=== PATIENT | male | born 1950 | race Caucasian/White ===

== ENCOUNTER 2024-05-21 11:35 | Inpatient (IN) | payer BC ==
[~2024-05-21] VITALS: Ht 175.3 cm; Wt 91.6 kg
[2024-05-21] MEDS: IV NS 0.9% 1,000 ML BAG IV ONE (12:08)
[2024-05-21 12:33] LABS: BASOPHILS % (AUTO) 0.4 % (0.0-2.0); EOSINOPHILS # (AUTO) 0.1 K/uL (0.0-0.7); EOSINOPHILS % (AUTO) 1.1 % (0.0-6.0); HEMATOCRIT 43 % (39-51); HEMOGLOBIN 13.9 g/dL (13.5-17.5); MEAN CORPUSCULAR HEMOGLOBIN 28 PG (26.0-33.0); MEAN CORPUSCULAR HGB CONC 33 g/dl (31.0-36.0); MEAN CORPUSCULAR VOLUME 87 fL (80-96); MONOCYTES # (AUTO) 1.8 K/uL (0.1-1.30); MONOCYTES % (AUTO) 17.7 % (2.0-12.0); NEUTROPHILS % (AUTO) 70.8 % (43.0-81.0); PLATELET COUNT (AUTO) 257 K/uL (150-450); RED BLOOD CELL COUNT(AUTO) 4.92 MIL/uL (4.5-6.0); RED CELL DISTRIBUTION WIDTH 13.8 % (11.5-15.0)
[2024-05-21 12:59] LABS: ALCOHOL, BLOOD < 3 mg/dL (0-10); CARBON DIOXIDE 24 mmol/L (21-32); CHLORIDE 102 mmol/L (98-107); CREATININE 5.2 mg/dL (0.6-1.3); GLUCOSE 79 mg/dL (74-106); POTASSIUM 5.1 mmol/L (3.5-5.1); SALICYLATE 12.3 mg/dL (2.8-20.0); SODIUM SERUM 142 mmol/L (136-145)
[2024-05-21 13:14] LABS: ACETAMINOPHEN <10 ug/ml (10-30); UREA NITROGEN, BLOOD 94 mg/dL (7-18)
[2024-05-21] MEDS ORDERED: MAGNESIUM HYDROXIDE 30 ML UDC PO PRN (14:30)
[2024-05-21] MEDS ORDERED: Z GUARD REMEDY 4 OZ OINT TP PRN (14:30)
[2024-05-21] MEDS ORDERED: MAG HYDROX/AL HYDROX/SIMETH 30 ML UDC PO PRN (14:30)
[2024-05-21] MEDS ORDERED: ONDANSETRON HCL/PF 4 MG/2 ML VIAL IVP PRN (14:30)
[2024-05-21] MEDS: IV NS 0.9% 1,000 ML IV PRN (17:30)
[2024-05-21 20:00] VITALS: BP 107/64; TEMP 97.5; O2SAT 95
[2024-05-22] VITALS: BP 109/64; TEMP 97.5; O2SAT 94
[2024-05-22 04:00] VITALS: BP 115/65; TEMP 97.7; O2SAT 93
[2024-05-22] MEDS: PANTOPRAZOLE 40 MG TABLET.DR PO SCH (07:30)
[2024-05-22 08:00] VITALS: BP 106/66; TEMP 98.2; O2SAT 94
[2024-05-22] MEDS ORDERED: BUPR-54 PO (09:09)
[2024-05-22] MEDS ORDERED: VENL150T PO (09:09)
[2024-05-22] MEDS ORDERED: EVOL140S2 SQ (09:09)
[2024-05-22] MEDS ORDERED: PROP80TA4 PO (09:09)
[2024-05-22] MEDS ORDERED: GUSE100A SQ (09:09)
[2024-05-22] MEDS ORDERED: ZOLP5TAB2 PO (09:09)
[2024-05-22] MEDS ORDERED: LISI10TA29 PO (09:09)
[2024-05-22 12:00] VITALS: BP 109/58; TEMP 98.2; O2SAT 95
[2024-05-22 14:39] LABS: THYROID STIMULATING HORMONE 0.6 uIU/mL (0.358-3.74)
[2024-05-22 15:59] VITALS: BP 121/73; TEMP 98.6; O2SAT 94
[2024-05-22 20:00] VITALS: BP 98/59; TEMP 97.5; O2SAT 95
[2024-05-23] VITALS: BP 126/71; TEMP 98.3; O2SAT 96
[2024-05-23] MEDS: AMIODARONE 150 MG/3 ML VIAL IV ONE ×2 (05:09→05:10)
[2024-05-23] MEDS: AMIODARONE 150 MG in IV D5W 100 ML IV ONE (05:17)
[2024-05-23] MEDS: AMIODARONE 450 MG in IV D5W 241 ML IV PRN (05:40)
[2024-05-23 07:25] LABS: APPEARANCE,URINE TURBID (CLEAR); BILIRUBIN,URINE 2+ (NEGATIVE); BLOOD, URINE 3+ Ery/uL (NEGATIVE); COLOR,URINE ORANGE (YELLOW); KETONES,URINE TRACE mg/dL (NEGATIVE); LEUKOCYTE ESTERASE ,URINE NEGATIVE (NEGATIVE); NITRITE, URINE NEGATIVE (NEGATIVE); PH,URINE 5.5 (5.0-8.0); PROTEIN,URINE 1+ mg/dl (NEGATIVE); UGLUCOSE NEGATIVE (NEGATIVE); UROBILINOGEN,URINE 0.2 EU/dL (0.2)
[2024-05-23 07:38] LABS: AMPHETAMINE, URINE NEGATIVE (NEGATIVE); BARBITURATE, URINE NEGATIVE (NEGATIVE); BENZODIAZEPINE, URINE NEGATIVE (NEGATIVE); CANNABINOID, URINE NEGATIVE (NEGATIVE); COCCAINE, URINE NEGATIVE (NEGATIVE); PHENCYCLIDINE SCREEN,URINE NEGATIVE (NEGATIVE)
[2024-05-23 07:45] LABS: OPIATE, URINE POSITIVE (NEGATIVE)
[2024-05-23 07:51] LABS: CREATININE, URINE 104.2 MG/DL (30.0-125.0); URINE TOTAL PROTEIN 83.5 mg/dL (0-11.9)
[2024-05-23 08:37] LABS: BASOPHILS % (AUTO) 0.3 % (0.0-2.0); EOSINOPHILS # (AUTO) 0.2 K/uL (0.0-0.7); HEMATOCRIT 40 % (39-51); HEMOGLOBIN 13.2 g/dL (13.5-17.5); LYMPHOCYTES # (AUTO) 0.8 K/uL (0.8-4.8); MEAN CORPUSCULAR HEMOGLOBIN 28 PG (26.0-33.0); MEAN CORPUSCULAR HGB CONC 33 g/dl (31.0-36.0); MEAN CORPUSCULAR VOLUME 83 fL (80-96); MONOCYTES # (AUTO) 1.3 K/uL (0.1-1.30); MONOCYTES % (AUTO) 17.4 % (2.0-12.0); NEUTROPHILS # (AUTO) 5.3 K/uL (1.8-8.9); NEUTROPHILS % (AUTO) 70.3 % (43.0-81.0); PLATELET COUNT (AUTO) 239 K/uL (150-450); RED BLOOD CELL COUNT(AUTO) 4.77 MIL/uL (4.5-6.0); RED CELL DISTRIBUTION WIDTH 13.1 % (11.5-15.0); WHITE BLOOD COUNT (AUTO) 7.5 K/uL (4.3-11.0)
[2024-05-23 09:00] LABS: ADD URINE CULTURE YES; BACTERIA,URINE Few /HPF (None Seen); EOSINOPHIL,URINE None Seen; RBC,URINE 21-50 /HPF (0-2); SQUAMOUS EPITHELIAL CELL,UR Moderate /HPF (None Seen)
[2024-05-23 09:01] LABS: CALCIUM, SERUM 8.6 mg/dL (8.5-10.1); CARBON DIOXIDE 21 mmol/L (21-32); CHLORIDE 103 mmol/L (98-107); CREATININE 3.5 mg/dL (0.6-1.3); GLUCOSE 83 mg/dL (74-106); SODIUM SERUM 137 mmol/L (136-145)
[2024-05-23 09:15] LABS: ALANINE AMINOTRANSFERASE 24 U/L (12-78); ALKALINE PHOSPHATASE 73 U/L (46-116); ASPARTATE AMINOTRANSFERASE 20 U/L (15-37); BILIRUBIN,TOTAL 0.7 mg/dL (0.2-1.0); MAGNESIUM 2.8 mg/dL (1.8-2.4); PHOSPHORUS 5.3 mg/dL (2.5-4.9); TOTAL PROTEIN, SERUM 6.6 g/dL (6.4-8.2)
[2024-05-23 09:19] LABS: UREA NITROGEN, BLOOD 99 mg/dL (7-18)
[2024-05-23 09:38] LABS: CHOLESTEROL 109 mg/dL (<200); HDL CHOLESTEROL 35 mg/dL (40-60); LDL 52 mg/dL (0-99); TRIGLYCERIDES 172 mg/dL (30-150)
[2024-05-23 09:39] LABS: INR 1.06 (0.91-1.10); PARTIAL THROMBOPLASTIN TIME 34.2 SEC (24.3-34.3); PROTHROMBIN TIME 11.2 SECS (9.2-11.1)
[2024-05-23 10:00] VITALS: BP 118/48; TEMP 98.5; O2SAT 98
[2024-05-23] MEDS: HEPARIN SODIUM, PORCINE 5000 UNITS/1 ML VIAL IV ONE (11:10)
[2024-05-23] MEDS: HEPARIN INFUSION/D5W 500 ML IV PRN (11:14)
[2024-05-23 12:00] VITALS: BP 118/68; TEMP 98.4; O2SAT 97
[2024-05-23 16:00] VITALS: BP 139/71; TEMP 97.7; O2SAT 97
[2024-05-23] MEDS: SERTRALINE HCL 25 MG TABLET PO SCH (16:27)
[2024-05-23 20:00] VITALS: BP 160/74; TEMP 98.2; O2SAT 92
[2024-05-24] VITALS: BP 136/73; TEMP 98.6; O2SAT 95
[2024-05-24 01:06] LABS: FOLIC ACID 15.6 ng/mL (>3.0)
[2024-05-24 04:00] VITALS: BP 140/73; TEMP 97.9; O2SAT 94
[2024-05-24 07:19] LABS: BASOPHILS % (AUTO) 0.3 % (0.0-2.0); EOSINOPHILS # (AUTO) 0.1 K/uL (0.0-0.7); EOSINOPHILS % (AUTO) 1.3 % (0.0-6.0); HEMATOCRIT 36 % (39-51); HEMOGLOBIN 12.2 g/dL (13.5-17.5); LYMPHOCYTES # (AUTO) 0.7 K/uL (0.8-4.8); MEAN CORPUSCULAR HEMOGLOBIN 28 PG (26.0-33.0); MEAN CORPUSCULAR HGB CONC 34 g/dl (31.0-36.0); MEAN CORPUSCULAR VOLUME 83 fL (80-96); MONOCYTES # (AUTO) 1.1 K/uL (0.1-1.30); MONOCYTES % (AUTO) 15.1 % (2.0-12.0); NEUTROPHILS # (AUTO) 5.4 K/uL (1.8-8.9); NEUTROPHILS % (AUTO) 73.3 % (43.0-81.0); PLATELET COUNT (AUTO) 197 K/uL (150-450); RED BLOOD CELL COUNT(AUTO) 4.39 MIL/uL (4.5-6.0); RED CELL DISTRIBUTION WIDTH 12.9 % (11.5-15.0); WHITE BLOOD COUNT (AUTO) 7.4 K/uL (4.3-11.0)
[2024-05-24 07:46] LABS: ALANINE AMINOTRANSFERASE 26 U/L (12-78); ALBUMIN 2.6 g/dL (3.4-5.0); ALKALINE PHOSPHATASE 84 U/L (46-116); ASPARTATE AMINOTRANSFERASE 30 U/L (15-37); BILIRUBIN,TOTAL 0.7 mg/dL (0.2-1.0); CALCIUM, SERUM 8.4 mg/dL (8.5-10.1); CARBON DIOXIDE 22 mmol/L (21-32); CHLORIDE 106 mmol/L (98-107); CREATININE 2.4 mg/dL (0.6-1.3); GLUCOSE 146 mg/dL (74-106); MAGNESIUM 2.3 mg/dL (1.8-2.4); PHOSPHORUS 3.8 mg/dL (2.5-4.9); POTASSIUM 3.7 mmol/L (3.5-5.1); SODIUM SERUM 136 mmol/L (136-145); TOTAL PROTEIN, SERUM 6.2 g/dL (6.4-8.2); UREA NITROGEN, BLOOD 76 mg/dL (7-18)
[2024-05-24 08:00] VITALS: BP 142/81; TEMP 97.3; O2SAT 97
[2024-05-24] MEDS: APIXABAN 5 MG TABLET PO SCH (08:34)
[2024-05-24] MEDS: AMIODARONE HCL 200 MG TABLET PO SCH (08:40)
[2024-05-24 12:00] VITALS: BP 140/81; TEMP 97.8; O2SAT 96
[2024-05-24 16:00] VITALS: BP 135/94; TEMP 98; O2SAT 96
[2024-05-24 20:00] VITALS: BP 134/100; TEMP 98; O2SAT 96
[2024-05-25] VITALS: BP 151/82; TEMP 98; O2SAT 99
[2024-05-25 04:00] VITALS: BP 150/85; TEMP 98.2; O2SAT 98
[2024-05-25 08:00] VITALS: BP 150/90; TEMP 97.8; O2SAT 98
[2024-05-25 09:12] LABS: CALCIUM, SERUM 8.8 mg/dL (8.5-10.1); CARBON DIOXIDE 24 mmol/L (21-32); CHLORIDE 107 mmol/L (98-107); CREATININE 1.6 mg/dL (0.6-1.3); GLUCOSE 110 mg/dL (74-106); POTASSIUM 3.6 mmol/L (3.5-5.1); SODIUM SERUM 142 mmol/L (136-145); UREA NITROGEN, BLOOD 47 mg/dL (7-18)
[2024-05-25 12:00] VITALS: BP 128/60; TEMP 97.9; O2SAT 98
[2024-05-25 16:00] VITALS: BP 149/84; TEMP 98.5; O2SAT 99
[2024-05-25 20:00] VITALS: BP 150/92; TEMP 97.8; O2SAT 96
[2024-05-26] VITALS: BP 155/90; TEMP 97.9; O2SAT 98
[2024-05-26 04:00] VITALS: BP 155/94; TEMP 98.1; O2SAT 99
[2024-05-26 07:55] LABS: BASOPHILS % (AUTO) 0.3 % (0.0-2.0); EOSINOPHILS # (AUTO) 0.2 K/uL (0.0-0.7); EOSINOPHILS % (AUTO) 1.9 % (0.0-6.0); HEMATOCRIT 38 % (39-51); LYMPHOCYTES # (AUTO) 0.9 K/uL (0.8-4.8); LYMPHOCYTES % (AUTO) 11.6 % (20.0-44.0); MEAN CORPUSCULAR HEMOGLOBIN 28 PG (26.0-33.0); MEAN CORPUSCULAR HGB CONC 34 g/dl (31.0-36.0); MEAN CORPUSCULAR VOLUME 82 fL (80-96); MONOCYTES # (AUTO) 1.1 K/uL (0.1-1.30); NEUTROPHILS # (AUTO) 5.6 K/uL (1.8-8.9); NEUTROPHILS % (AUTO) 72.2 % (43.0-81.0); PLATELET COUNT (AUTO) 223 K/uL (150-450); RED BLOOD CELL COUNT(AUTO) 4.61 MIL/uL (4.5-6.0); RED CELL DISTRIBUTION WIDTH 13.2 % (11.5-15.0); WHITE BLOOD COUNT (AUTO) 7.8 K/uL (4.3-11.0)
[2024-05-26 08:00] VITALS: BP 146/87; TEMP 98.2; O2SAT 99
[2024-05-26 08:17] LABS: ALANINE AMINOTRANSFERASE 22 U/L (12-78); ALBUMIN 2.6 g/dL (3.4-5.0); ALKALINE PHOSPHATASE 80 U/L (46-116); ASPARTATE AMINOTRANSFERASE 20 U/L (15-37); BILIRUBIN,TOTAL 0.8 mg/dL (0.2-1.0); CALCIUM, SERUM 8.5 mg/dL (8.5-10.1); CARBON DIOXIDE 26 mmol/L (21-32); CHLORIDE 106 mmol/L (98-107); CREATININE 1.6 mg/dL (0.6-1.3); GLUCOSE 96 mg/dL (74-106); MAGNESIUM 1.9 mg/dL (1.8-2.4); PHOSPHORUS 2.7 mg/dL (2.5-4.9); POTASSIUM 3.5 mmol/L (3.5-5.1); SODIUM SERUM 141 mmol/L (136-145); UREA NITROGEN, BLOOD 32 mg/dL (7-18)
[2024-05-26 16:00] VITALS: BP 143/88; TEMP 97.7; O2SAT 98
[2024-05-26 20:00] VITALS: BP 151/85; TEMP 99.1; O2SAT 98
[2024-05-27 04:00] VITALS: BP 166/96; TEMP 99; O2SAT 100
[2024-05-27] MEDS: ACETAMINOPHEN 325 MG TABLET PO PRN (04:02)
[2024-05-27 07:38] LABS: BASOPHILS % (AUTO) 0.2 % (0.0-2.0); EOSINOPHILS # (AUTO) 0.2 K/uL (0.0-0.7); EOSINOPHILS % (AUTO) 1.4 % (0.0-6.0); HEMATOCRIT 38 % (39-51); HEMOGLOBIN 12.9 g/dL (13.5-17.5); LYMPHOCYTES # (AUTO) 0.8 K/uL (0.8-4.8); LYMPHOCYTES % (AUTO) 7.4 % (20.0-44.0); MEAN CORPUSCULAR HEMOGLOBIN 28 PG (26.0-33.0); MEAN CORPUSCULAR HGB CONC 34 g/dl (31.0-36.0); MEAN CORPUSCULAR VOLUME 82 fL (80-96); MONOCYTES # (AUTO) 1.2 K/uL (0.1-1.30); MONOCYTES % (AUTO) 10.5 % (2.0-12.0); NEUTROPHILS # (AUTO) 9.3 K/uL (1.8-8.9); NEUTROPHILS % (AUTO) 80.5 % (43.0-81.0); PLATELET COUNT (AUTO) 239 K/uL (150-450); RED BLOOD CELL COUNT(AUTO) 4.67 MIL/uL (4.5-6.0); RED CELL DISTRIBUTION WIDTH 13.1 % (11.5-15.0); WHITE BLOOD COUNT (AUTO) 11.5 K/uL (4.3-11.0)
[2024-05-27 07:47] LABS: ALANINE AMINOTRANSFERASE 27 U/L (12-78); ALBUMIN 2.6 g/dL (3.4-5.0); ALKALINE PHOSPHATASE 76 U/L (46-116); ASPARTATE AMINOTRANSFERASE 23 U/L (15-37); BILIRUBIN,TOTAL 0.6 mg/dL (0.2-1.0); CALCIUM, SERUM 8.5 mg/dL (8.5-10.1); CARBON DIOXIDE 26 mmol/L (21-32); CHLORIDE 107 mmol/L (98-107); CREATININE 1.5 mg/dL (0.6-1.3); GLUCOSE 98 mg/dL (74-106); MAGNESIUM 1.6 mg/dL (1.8-2.4); PHOSPHORUS 2.6 mg/dL (2.5-4.9); POTASSIUM 3.2 mmol/L (3.5-5.1); SODIUM SERUM 141 mmol/L (136-145); TOTAL PROTEIN, SERUM 6.1 g/dL (6.4-8.2); UREA NITROGEN, BLOOD 25 mg/dL (7-18)
[2024-05-27 08:00] VITALS: BP 168/91; TEMP 98.7; O2SAT 94
[2024-05-27] MEDS: MAGNESIUM OXIDE 400 MG TABLET PO ONE (12:38)
[2024-05-27] MEDS: POTASSIUM CHLORIDE 20 MEQ TAB.PRT.SR PO SCH (12:38)
[2024-05-27 16:00] VITALS: BP 157/87; TEMP 99; O2SAT 100
[2024-05-28] MEDS ORDERED: CLONIDINE HCL 0.1 MG TABLET PO PRN (10:30)
[2024-05-28 11:13] VITALS: BP 153/96
[2024-05-28] MEDS: LISINOPRIL (10MG) 10 MG TABLET PO SCH (11:13)
[2024-05-28] MEDS ORDERED: VENLAFAXINE XR 150 MG CAP.SR.24H PO SCH (13:30)
[2024-05-28] MEDS ORDERED: PROPRANOLOL HCL 40 MG TABLET PO SCH (17:00)
[2024-05-29] MEDS ORDERED: LISINOPRIL (10MG) 10 MG TABLET PO SCH (09:00)
[2024-05-29] MEDS ORDERED: BUPROPION XL 150 MG TAB.ER.24 PO SCH (09:00)
== END 2024-05-28 13:26 | DRG 682 ==
LOC: ER 11:37 → MED 16:23 → TELE 18:13 → TELE-TD 05-23 04:38 → TELE1 05-23 12:14 → TELE-TD 05-23 13:25 → TELE1 05-24 10:08 → MEDSG1 05-26 08:07
PROVIDERS: ADMIT Nurse Practitioner Acute Care
DX: N17.0 Acute kidney failure with tubular necrosis (principal); G92.8 Other toxic encephalopathy; D68.69 Other thrombophilia; F33.9 Major depressive disorder, recurrent, unspecified; E86.0 Dehydration; I12.9 Hypertensive chronic kidney disease with stage 1 through stage 4 chronic kidney disease, or unspecified chronic kidney disease; N18.9 Chronic kidney disease, unspecified; E66.9 Obesity, unspecified; E78.5 Hyperlipidemia, unspecified; F41.9 Anxiety disorder, unspecified; G25.3 Myoclonus; G89.29 Other chronic pain; I48.91 Unspecified atrial fibrillation; M89.8X9 Other specified disorders of bone, unspecified site; Z87.891 Personal history of nicotine dependence; R53.1 Weakness; Z68.29 Body mass index [BMI] 29.0-29.9, adult; N40.0 Benign prostatic hyperplasia without lower urinary tract symptoms; G25.0 Essential tremor; F39 Unspecified mood [affective] disorder; F41.1 Generalized anxiety disorder; F11.90 Opioid use, unspecified, uncomplicated; Z91.81 History of falling; Z79.1 Long term (current) use of non-steroidal anti-inflammatories (NSAID)
CPT/HCPCS: 36415; 70450-TC; 71045-TC; 76770-TC; 80048-TC; 80053-TC; 80061-TC; 81001; 82570-TC; 82607-TC; 83735-TC; 83921; 84100-TC; 84300-TC; 84425; 84439-TC; 84443-TC; 84484-TC; 85025-TC; 85610-TC; 85730-TC; 87086-TC; 93307-TC; 97110-TC; 97116-TC; 97530-TC; 97535-TC; A4223; G0378; G0480; J0282; J1644; J7030; J7060